=== PATIENT | female | born 1990 | race Caucasian/White ===

== ENCOUNTER 2018-02-01 05:28 | Inpatient (IN) | payer OTHER ==
[2018-02-01 06:15] VITALS: BMI 41.5
[2018-02-01] MEDS ORDERED: Bicitra 30 ML UDCUP PO SCH (06:45)
[2018-02-01] MEDS ORDERED: CEFAZOLIN/Water 2 GM/20 ML SYRINGE SLOW IVP SCH (06:45)
[2018-02-01 06:51] LABS: Hemoglobin 12.6 g/dL (12.0-16.0); Mean Corpuscular HGB CONC 35.3 g/dL (32.0-36.0); Mean Corpuscular Hemoglobin 32.7 pg (27.0-31.0); Mean Corpuscular Volume 92.5 fl (81.0-99.0); Mean Platelet Volume 6.4 fL (7.4-10.4); Platelet Count 243 thou/uL (130-400); RBC Distribution Width 11.9 % (11.5-14.5); Red Blood Cell (RBC) Count 3.87 mill/uL (4.20-5.40); White Blood Cell (WBC) Count 10.1 thou/uL (4.8-10.8)
[2018-02-01 07:25] LABS: HBSAg Index 0.22 S/CO (0-0.99); Hep B Surf Ag Non-Reactive S/CO (NonReactive); Syphilis Antibody Nonreactive (Nonreactive); Syphilis Antibody Index 0.04 S/CO (<1.00 Non-Reactive)
[2018-02-01] MEDS ORDERED: Morphine PF 1 MG/ML SYR ONE (07:26)
[2018-02-01] MEDS ORDERED: PHENYLEPHRINE-NS 100 MCG/ML 10 ML SYRINGE ONE ×2 (07:27→13:23)
[2018-02-01] MEDS ORDERED: Lidocaine 1% PF 5 ML VIAL ONE (07:27)
[2018-02-01] MEDS ORDERED: Bupivacaine 0.75% W/DEXTROSE 8.25% 2 ML AMP ONE (07:27)
[2018-02-01] MEDS ORDERED: Oxytocin 10 UNITS/ML VIAL ONE (07:27)
[2018-02-01] MEDS ORDERED: Ketorolac Tromethamine 30 MG/ML VIAL ONE ×2 (07:27→13:23)
[2018-02-01] MEDS ORDERED: Meperidine HCl/PF 25 MG/ML VIAL SLOW IVP PRN (07:41)
[2018-02-01] MEDS ORDERED: Ondansetron HCl/PF 4 MG/2 ML Vial IVP PRN ×3 (07:41→08:45)
[2018-02-01] MEDS ORDERED: HYDROmorphone 2 MG/ML VIAL SLOW IVP PRN (07:41)
[2018-02-01] MEDS ORDERED: Naloxone HCl 0.4 mg/ml Vial IVP PRN ×2 (07:42)
[2018-02-01] MEDS ORDERED: Naloxone HCl 0.4 mg/ml Vial IV PRN (07:42)
[2018-02-01] MEDS ORDERED: Eucerin (Mineral Oil/Petrolatum,White) 30 gm Jar TOP PRN (07:42)
[2018-02-01] MEDS ORDERED: Promethazine HCl 25 MG SUPP PR PRN (07:42)
[2018-02-01] MEDS ORDERED: Promethazine HCl 25 MG/ML VIAL IM PRN (07:42)
[2018-02-01] MEDS ORDERED: diphenhydrAMINE 50 MG/ML VIAL IVP PRN (07:42)
[2018-02-01] MEDS ORDERED: Communication Order-Pharmacy FS SCH (07:45)
[2018-02-01] MEDS ORDERED: Ketorolac Tromethamine 30 MG/ML VIAL IVP SCH (07:45)
[2018-02-01] MEDS ORDERED: Lactated Ringer's 1,000 ML IV SCH (08:45)
[2018-02-01] MEDS ORDERED: diphenhydrAMINE 25 MG CAP PO PRN (08:45)
[2018-02-01] MEDS ORDERED: Bisacodyl 10 MG SUPP PR PRN (08:45)
[2018-02-01] MEDS ORDERED: Lanolin Ointment 7 GM TUBE TOP PRN (08:45)
[2018-02-01] MEDS ORDERED: Zolpidem Tartrate 5 MG TAB PO PRN (08:45)
[2018-02-01] MEDS ORDERED: Adacel (T-DAP) 0.5 ML VIAL IM ONE (08:45)
[2018-02-01] MEDS ORDERED: LR w/ Pitocin 40 units/1000 ML BAG IV SCH (08:45)
[2018-02-01] MEDS ORDERED: Acetaminophen 325 MG TAB PO PRN (08:45)
[2018-02-01] MEDS ORDERED: LR / Pitocin 40 units/1000 ml 1,000 ML IV SCH (09:30)
[2018-02-01] MEDS ORDERED: Meperidine HCl/PF 25 MG/ML VIAL ONE (10:18)
[2018-02-01] MEDS: Docusate Calcium (SURFAK) 240 MG CAP PO SCH ×2 (12:32→23:32)
[2018-02-01] MEDS: Prenatal Vitamin 1 TAB PO SCH (12:32)
[2018-02-01] MEDS: Ferrous Sulfate 325 MG TAB PO SCH (12:33)
[2018-02-01] MEDS: Ketorolac Tromethamine 30 MG/ML VIAL IVP PRN ×2 (17:25→23:13)
[2018-02-01] MEDS ORDERED: HYDROcodone/Acetaminophen 5/325 mg Tablet PO PRN (19:45)
[2018-02-01] MEDS ORDERED: Meperidine HCl/PF 25 MG/ML VIAL IM PRN (19:45)
[2018-02-01] MEDS: Simethicone Chewable 80 MG TAB PO PRN (23:13)
[2018-02-02] MEDS: HYDROcodone/Acetaminophen 5/325 mg Tablet PO PRN ×4 (03:44→19:51)
[2018-02-02] MEDS: Simethicone Chewable 80 MG TAB PO PRN ×2 (05:46→13:49)
[2018-02-02] MEDS: Ibuprofen 800 MG TAB PO SCH ×3 (05:46→21:23)
[2018-02-02 06:06] LABS: Hemoglobin 11.8 g/dL (12.0-16.0); Mean Corpuscular HGB CONC 33.9 g/dL (32.0-36.0); Mean Corpuscular Volume 94.6 fl (81.0-99.0); Mean Platelet Volume 6.4 fL (7.4-10.4); Platelet Count 212 thou/uL (130-400); RBC Distribution Width 12.1 % (11.5-14.5); Red Blood Cell (RBC) Count 3.69 mill/uL (4.20-5.40); White Blood Cell (WBC) Count 10.4 thou/uL (4.8-10.8)
[2018-02-02] MEDS: Docusate Calcium (SURFAK) 240 MG CAP PO SCH ×2 (08:27→21:23)
[2018-02-02] MEDS: Prenatal Vitamin 1 TAB PO SCH (08:27)
[2018-02-02] MEDS: Ferrous Sulfate 325 MG TAB PO SCH ×2 (10:47→18:32)
[2018-02-02] MEDS ORDERED: Ibuprofen 800 MG TAB PO SCH (14:00)
[2018-02-03] MEDS ORDERED: Cepastat Lozenges 1 LOZ PO PRN (04:27)
[2018-02-03] MEDS: Ibuprofen 800 MG TAB PO SCH (05:42)
[2018-02-03] MEDS: Simethicone Chewable 80 MG TAB PO PRN (05:48)
[2018-02-03 08:57] VITALS: BP 115/72; TEMP 97.8
[2018-02-03] MEDS: Ferrous Sulfate 325 MG TAB PO SCH (09:15)
[2018-02-03] MEDS: Docusate Calcium (SURFAK) 240 MG CAP PO SCH (09:16)
[2018-02-03] MEDS: Prenatal Vitamin 1 TAB PO SCH (09:16)
--- NOTE | 2018-02-03 12:58 | OP ---
DATE OF PROCEDURE: 02/01/2018 ATTENDING STAFF PHYSICIAN: Mainor Katz M.D. SURGEON: Mainor Katz M.D. PRODUCT CONSULTANT SURGEON: Enedina Stover M.D. PREOPERATIVE DIAGNOSES: 1. Term intrauterine at 39 weeks. 2. Prior . 3. Declines trial of labor. POSTOPERATIVE DIAGNOSES: 1. Term intrauterine at 39 weeks. 2. Prior . 3. Declines trial of labor. PROCEDURE: Repeat low transverse section. ANESTHESIA: Spinal catheterization. FINDINGS: 1. Vigorous female , 7 pounds 6 ounces, Apgars 8 and 9. 2. Normal uterus, tubes and ovaries. COMPLICATIONS: None. SPECIMENS REMOVED: Cord blood. ESTIMATED BLOOD LOSS: 500 mL. PROCEDURE IN DETAIL: After thorough consent and counseling, Mrs. Matute was taken to the operating room and adequate level of anesthesia was obtained via spinal catheterization. The patient was prepp ed and draped in the usual sterile fashion for abdominal surgery. A Mccoy was placed in the bladder, which was noted to be draining clear urine. Attention was then turned to performing the repeat low transverse section. A Pfannenstiel incision was made and carried sharply to the fascia which was also sharply incised. T he midline was identified and the rectus muscles were retracted laterally. The abdominal peritoneal cavity was entered with the usual safeguards carried out. A retractor was placed and a bladder flap was created on the vesicouterine peritoneum. A low transverse incision was made on the well-develope d lower uterine segment. Upon entering the amniotic sac, copious amount of clear amniotic fluid was visualized. The infant was noted to be vertex presentation in the occiput anterior position high in the pelvis. Head was delivered and baby was bulb suctioned on the abdomen. Shoulders and body were then easily delivered. The cord was doubly clamped and cut and the was handed to the neonatol ogy team in attendance for the delivery. The was a vigorous viable female weighing 7 pounds 6 ounces with Apgars of 8 and 9 obtained at 1 and 5 minutes respectively. Cord blood was obtained. T he placenta was manually removed from the uterus. The uterine cavity was cleared of any remaining cl ot and fluid. The low transverse incision was closed with a running locking ligature of #1 chromic. A second imbricating layer was placed to facilitate strength and hemostasis. The vesicouterine risa toneum was reapproximated to the lower segment with running ligature of 3-0 Monocryl. The posterior cul-de-sac and gutters were cleared of clot and fluid. The incision was carefully inspected and note d to be hemostatic. Seprafilm was applied to the low transverse incision and to the anterior aspect of the uterus for adhesion prevention. The uterus was returned to the abdomen and good tone and hemo stasis was again appreciated. Lap, sponge, and needle counts were correct. The peritoneum was close d with a running ligature of 2-0 Vicryl. The rectus muscles were reapproximated in the midline with interrupted ligatures of 2-0 Vicryl and 0 chromic suture. The fascia was then closed with 2 ligature s of 0 Vicryl suture, which were tied in the midline. Good fascial integrity was appreciated. The i ncision was irrigated with copious amount of warm normal saline. The subcutaneous tissue was then cl osed with multiple [id number] ligatures of 2-0 plain suture. The skin was closed with a subcuti cular stitch of 4-0 Monocryl. A pressure dressing and ice packs were subsequently placed. Lap, spon ge, and needle counts were correct x3. Estimated blood loss during the surgical procedure was approximately 500 mL. The patient was taken to the recovery room in good condition. The patient and family were made aware of the surgical procedure and operative findings. Questions answered to their satisfaction. Mother and baby were doing well postoperatively.
== END 2018-02-03 14:00 | disposition home or self-care (01) | DRG 766 ==
LOC: L&D 05:28 → 3SW 11:05
PROVIDERS: ADMIT Obstetrics & Gynecology; ATTEND Obstetrics & Gynecology
PROC: 10D00Z1 Extraction of Products of Conception, Low, Open Approach (ICD-10-PCS; principal; 2018-02-01)
DX: O34.211 Maternal care for low transverse scar from previous cesarean delivery (principal); N85.8 Other specified noninflammatory disorders of uterus; Z3A.39 39 weeks gestation of pregnancy; Z37.0 Single live birth; Z87.891 Personal history of nicotine dependence
CPT/HCPCS: 36415; 51702; 85027; 86780; 86850; 86900; 86901; 87340; J1885; J2001; J2175; J2274; J2590; J3490